=== PATIENT | female | born 1985 | race Caucasian/White ===

== ENCOUNTER 2019-03-26 08:32 | Day surgery (SDC) | payer SELFPAY ==
[2019-03-21 09:25] VITALS: BMI 23.1
[2019-03-26] VITALS (7 sets, daily range): BP systolic 95–102; BP diastolic 54–68; PULSE 67–73; RESP 16; TEMP 36.2–36.8; O2SAT 100; BMI 22.4
--- NOTE | 2019-03-26 06:06 | HP.PCM_ITS ---
Problem List (1) Family history of colon cancer Status: Acute History and Physical Date of Admission: 03/26/19 Intake Vital Signs 03/21/19 Height 5 ft 5 in 03/21/19 Weight: 139 lb 03/21/19 Body Mass Index (BMI) 23.1 03/21/19 Blood Pressure 92/60 03/21/19 Blood Pressure Location Rt brachial 03/21/19 Respiratory Rate 18 03/21/19 Pulse Rate 79 03/21/19 Pulse Source Monitor 03/21/19 Temperature 98.3 F 03/21/19 Pulse Ox 97 03/21/19 Oxygen Delivery Method room air Intake Visit Reasons: C-Scope Family HX (Sister 43) [employer]ificial [employer]eding [employer] Required: No Is patient in pain?: No Allergies No Known Allergies Allergy (Unverified 03/21/19 09:26) Medications fluoxetine 40 mg capsule 40 mg PO DAILY 03/21/19 [History Confirmed 03/21/19] PFSH Medical History (Updated 03/21/19 @ 09:44 by Alexandre Green MD) Family history of colon cancer (Acute) Depression (Acute) Family history of colon cancer (Acute) Surgical History (Updated 03/21/19 @ 09:23 by Melinda Cordero) History of section (Acute) Family History (Updated 03/21/19 @ 09:25 by Melinda Cordero) Sister Colon cancer Thyroid disorder Brother Cancer non hodgkins lymphoma Mother Hypertension Thyroid disorder Social History (Updated 03/21/19 @ 09:45 by Alexandre Green MD) Smoking Status: Never smoker alcohol intake: never substance use type: does not use HPI HPI HPI: CLARISA CAMP, is a 34 F who presents to the office today for HPI HPI Surgical H&P: Yes HPI: CLARISA CAMP, is a 34 F who presents to the office today for surgical consultation regarding strong family history of colon cancer and colon polyps. The patient denies bright red blood per rectum or melena. No abdominal pain. No change of bowel habits. No bright red blood per rectum or melena. However she did have a sister who developed colon cancer at age 41 . She has a second sister who at age 38 has had colon polyps. The patient has recently had some slight weight loss but she feels that is more due to her anxiety and depression over the loss of her sister. ROS General General: No weight change, appetite, fatigue, colon cancer, breast cancer or weakness HEENT HEENT: No difficulty swallowing, eye injury, eye surgery, swollen glands or hoarseness Endo Endocrine: Yes thyroid disease; no diabetes mellitus, thyroid cancer, Hair loss, heat intolerance or cold intolerance Skin Skin: No rash or changing moles Breast Breast: No left breast lump, right breast lump, nipple discharge, breast pain, abnormal mammogram, abnormal US or breast enlargement Musc Musculoskeletal: No back problems, arthritis, rheumatoid arthritis, gout or joint pain Cardio Cardiovascular: No murmur, pacemaker, heart disease, atrial fibrillation, high blood pressure, heart attack, heart stent, palpitations, shortness of breat with exertion or chest pain Psych Psychiatric: Yes depression; no anxiety or hearing voices Resp Respiratory: No shortness of breath, No sleep apnea, No cough, No COPD, No asthma, No emphysema, No wheezing Gastro Gastrointestinal: No abdominal pain, No nausea or vomiting, No diarrhea, No constipation, No blood in stool, No acid reflux, No hemorrhoids, No ulcers, No gallbladder problem, No black,tarry stools Memo Hematologic: No blood thinners, No blood disorders, No bleeding, No anemia, No blood clots Neuro Neurologic: No system reviewed and no additional complaints, except as docu, No as per HPI, No abnormal walking, No abnormal hearing, No abnormal movements, No abnormal speech, No behavioral changes, No burning sensations, No confusion, No seizure-like activity, No unsteadiness, No dizziness, No localized weakness, No frequent falls, No headache(s), No lack of coordination, No loss of vision, No memory loss, No numbness, No other visual disturbances, No radiating pain, No restless legs, No sensory deficit, No fainting, No tingling, No tremor(s), No weakness, No other Exam Const General: cooperative, healthy appearing, comfortable, no acute distress Nutritional Appearance: underweight Orientation: alert, awake, oriented x3 HENMT Head: normal to inspection Chest Chest palpation & inspection: normal inspection of the chest Breast Palpation: No nipple discharge Resp Effort & Inspection: normal respiratory effort Auscultation: clear to auscultation bilaterally Cardio Rate: regular rate Rhythm: regular rhythm Heart Sounds: no murmurs GI Palpation: soft Auscultation: normal bowel sounds Neuro Cognition: normal cognition Extrem General: no calf tenderness bilaterally Psych Affect: normal affect Assessment & Plan Problems 1. Family history of colon cancer Z80.0 Plan Family history of colon cancer and a sister who of it. Family history of colon polyps in his sister only age 38. I concur with the patient's referral and request for colonoscopy with possible biopsy or polypectomy as indicated. I just described the technique, benefit, risks, alternatives. She has had an opting to ask and have questions answered. She does have a chronic anxiety issue so we will utilize monitored anesthesia care. We will schedule and proceed at her discretion. I very much appreciate the kind opportunity of assisting with her surgical care. CC: Dr. Ori Green M.D., F.A.C.S. Coding Level of Care Code Off vis,new,level 2 Diagnoses Family history of colon cancer Z80.0 03/21/19 0945 <Electronically signed by Alexandre tapia MD> Date _ Alexandre Green MD Cosigner Signature: Date (if applicable) CC: Gallito Rehman MD ~ I have re-examined the patient. There are no clinical changes since date of exam.
[2019-03-26 09:27] LABS: Internal QC Validated? YES +Cl - CLEAR BKGD; Pregnancy, Urine Negative Negative
--- NOTE | 2019-03-26 10:49 | OP.ENDO_ITS ---
03/26/2019 Mikala Rehman Md Re : Colonoscopy procedure for Monique Overton Dear Ori This procedure was performed on Tuesday, March 26, 2019. My impressions and recommendations are as follows: Impressions : - Tortuous colon. - The examination was otherwise normal. - No specimens collected. Recommendations : - Discharge patient to home. - Resume previous diet. - Continue present medications. - Repeat colonoscopy in 5 years for surveillance. My findings are described in the full procedure note, which is enclosed. If I can be of further assistance, please feel free to contact me at Doctor phone number(s): Work: . Sincerely, Alexandre Green MD 03/26/2019 10:49:26 AM This report has been signed electronically.
== END 2019-03-26 12:05 | disposition home or self-care (01) ==
LOC: EN 08:41 → AC 08:44
PROVIDERS: Anesthesiology; Referring Provider Surgery; Visit Provider Surgery
PROC: 0DJD8ZZ Inspection of Lower Intestinal Tract, Via Natural or Artificial Opening Endoscopic (ICD-10-PCS; CPT 45378; principal; 2019-03-26 09:40)
DX: Z12.11 Encounter for screening for malignant neoplasm of colon (principal); Q43.8 Other specified congenital malformations of intestine; E07.9 Disorder of thyroid, unspecified; F32.9 Major depressive disorder, single episode, unspecified; F41.9 Anxiety disorder, unspecified; Z79.899 Other long term (current) drug therapy; Z80.0 Family history of malignant neoplasm of digestive organs; Z83.71 Family history of colonic polyps
CPT/HCPCS: 45378; 81025; J7120